=== PATIENT | male | born 1990 | race Caucasian/White ===

== ENCOUNTER 2019-03-12 20:44 | Emergency (ER) | payer OTHER ==
[~2019-03-12] VITALS: Ht 188 cm; Wt 99.8 kg
--- NOTE | 2019-03-12 21:03 | NUR ---
ED Nurse Note: pt walked in to ED C/O right sided flank pain that radiates to the back. reynaldo pain started on last sunday. pt states he took advil and it helps a little. Pt is alert x4. VSS
[2019-03-12 21:06] VITALS: BP 126/75
--- NOTE | 2019-03-12 21:14 | Emergency Room Report ---
History of Present Illness General Chief Complaint: Pain Source: Patient Present Illness HPI Disclaimer: Please note that this report is being documented using [employer] technology. This can lead to erroneous entry secondary to incorrect interpretation by the dictating instrument. HPI: 29-year-old otherwise healthy male presents for evaluation of right side pain. Symptoms began approximately 5 days ago. He states he woke up with a aching pain in his left side that does not radiate. Located over the "kidney" on the right side. He denies any trauma, heavy lifting, strenuous workouts. He is otherwise in his usual state of health and denies any fever, chills, chest pain, shortness of breath, dysuria, hematuria, abdominal pain, vomiting, diarrhea. No prior history of similar pain. There is no family history of abdominal cancers or other significant pathology. No personal or family history of kidney stones. He was seen at urgent care 2 days ago and states a urinalysis was unremarkable. He has not taken any medication for pain and states it is more of an ache. He was referred to the emergency department by his PMD as the pain had persisted for 5 days PMH: None PSH: None reported Allergies: Oxacillin Social Hx: Denies drug or alcohol abuse Allergies: Coded Allergies: AMOXICILLIN (Verified Allergy, Unknown, 03/12/19) Nursing Documentation-PMH Past Medical History: No Stated History Review of Systems All Other Systems: negative except mentioned in HPI Physical Exam Vital Signs Date Time Temp Pulse Resp B/P (MAP) Pulse Ox O2 Delivery O2 Flow Rate FiO2 03/12/19 20:55 97.9 60 16 122/75 (91) 99 Room Air General: Awake and alert, no acute distress HEENT: NC/AT. EOMI. Cardiovascular: RRR. S1 and S2 normal. No murmur appreciated Resp: Normal work of breathing. No cough, wheezing or crackles appreciated Abdomen: Abdomen is soft, nondistended. Nontender. No masses. No rebound Skin: Intact. No abrasions, laceration or rash over the exposed skin MSK: Normal tone and bulk. Moving all extremities. No obvious deformity. Neuro: Awake and alert. Mentating appropriately. Back/Spine: No midline tenderness in the cervical, thoracic or lumbosacral spine. Mild tenderness palpation in the mid scapular line on the right side without deformity or mass palpable. There is no CVA tenderness on percussion. Left side is nontender. Procedures Ultrasound Ultrasound : Consent: Verbal Ultrasound: normal Patient Tolerated: Well Complications: None Progress Ultrasound of the right kidney and liver. No masses appreciated. No pericholecystic fluid, no fluid in Morison's pouch. No evidence of cysts, mass , no hydronephrosis. Normal-appearing kidney. Overall unremarkable exam. Patient tolerated procedure well. No complications. Medical Decision Making Diagnostic Impression: Primary Impression: Right flank pain ER Course Well-appearing 29-year-old male presenting for evaluation of 5 days of right- sided pain that is nonradiating and atraumatic. Differential includes but is not limited to nephrolithiasis, renal colic, biliary colic, cholecystitis, pancreatitis, appendicitis, gastroenteritis, urinary tract infection, pyelonephritis. We will recheck a urinalysis but will also obtain blood work to evaluate for white count and kidney function. Overall he is very well- appearing and this may be a musculoskeletal injury. Do not believe he requires emergent imaging at this time but can reevaluate after lab results and patient improvement after Toradol and fluids. Laboratory Tests Test 03/12/19 21:15 White Blood Count 8.1 K/UL (4.8-10.8) Red Blood Count 5.40 M/UL (4.70-6.10) Hemoglobin 16.4 G/DL (14.2-18.0) Hematocrit 47.5 % (42.0-52.0) Mean Corpuscular Volume 88 FL (80-99) Mean Corpuscular Hemoglobin 30.4 PG (27.0-31.0) Mean Corpuscular Hemoglobin Concent 34.5 G/DL (32.0-36.0) Red Cell Distribution Width 9.8 % (11.6-14.8) L Platelet Count 169 K/UL (150-450) Mean Platelet Volume 8.2 FL (6.5-10.1) Neutrophils (%) (Auto) 52.3 % (45.0-75.0) Lymphocytes (%) (Auto) 35.0 % (20.0-45.0) Monocytes (%) (Auto) 7.9 % (1.0-10.0) Eosinophils (%) (Auto) 3.7 % (0.0-3.0) H Basophils (%) (Auto) 1.1 % (0.0-2.0) Urine Color Pale yellow Urine Appearance Clear Urine pH 5 (4.5-8.0) Urine Specific [place] 1.025 (1.005-1.035) Urine Protein Negative (NEGATIVE) Urine Glucose (UA) Negative (NEGATIVE) Urine Ketones Negative (NEGATIVE) Urine Blood Negative (NEGATIVE) Urine Nitrite Negative (NEGATIVE) Urine Bilirubin Negative (NEGATIVE) Urine Urobilinogen Normal MG/DL (0.0-1.0) Urine Leukocyte Esterase Negative (NEGATIVE) Sodium Level 142 MMOL/L (136-145) Potassium Level 4.3 MMOL/L (3.5-5.1) Chloride Level 103 MMOL/L (98-107) Carbon Dioxide Level 32 MMOL/L (21-32) Anion Gap 7 mmol/L (5-15) Blood Urea Nitrogen 23 mg/dL (7-18) H Creatinine 1.1 MG/DL (0.55-1.30) Estimate Glomerular Filtration Rate > 60 mL/min (>60) Glucose Level 94 MG/DL (74-106) Calcium Level 9.9 MG/DL (8.5-10.1) Total Bilirubin 0.5 MG/DL (0.2-1.0) Aspartate Amino Transferase (AST) 17 U/L (15-37) Alanine Aminotransferase (ALT) 28 U/L (12-78) Alkaline Phosphatase 62 U/L (46-116) Total Protein 8.4 G/DL (6.4-8.2) H Albumin 4.8 G/DL (3.4-5.0) Globulin 3.6 g/dL Albumin/Globulin Ratio 1.3 (1.0-2.7) Lipase 103 U/L (73-393) Reevaluation Time: 21:48 Last Vital Signs Date Time Temp Pulse Resp B/P (MAP) Pulse Ox O2 Delivery O2 Flow Rate FiO2 03/12/19 21:06 98.0 88 17 126/75 99 Room Air Reevaluation Impression Labs have returned within normal limits. No evidence of kidney injury, white count, urinary tract infection. There is no hematuria or other abnormalities noted on urinalysis. The patient had a bedside ultrasound performed by mo showing no evidence of obvious cyst, mass, hydronephrosis or other abnormalities. This may be a musculoskeletal injury and the patient be treated with ibuprofen, Tylenol and lidocaine patches. We discussed stretching and warm baths as well as need to follow-up with his PMD for reevaluation and possibly further testing such as a formal ultrasound, CT scan or MRI. I explained to him that the bedside ultrasound performed is not comprehensive and that his doctor may request a formal ultrasound to more fully investigate his right flank pain. He is overall well-appearing and I do not believe he requires emergent imaging at this time. He will be discharged home to follow- up with PMD. Given strict return precautions. He understands and agrees with this treatment plan was discharged. Disposition: HOME, SELF-CARE Condition: Stable Scripts Lidocaine Patch* (Lidoderm Patch*) 1 Each Adh..patch 1 PATCH TOPIC DAILY, #7 PATCH 0 Refills Patch(es) may remain in place for up to 12 hours in any 24-hour period. Prov: Donal Esqueda MD 03/12/19 Ibuprofen* (MOTRIN*) 600 Mg Tablet 600 MG ORAL Q8H PRN for For Pain, #30 TAB 0 Refills Prov: Donal Esqueda MD 03/12/19 Acetaminophen* (ACETAMINOPHEN 325MG TABLET*) 325 Mg Tablet 650 MG ORAL Q6H PRN for For Pain for 5 Days, #3 TAB Prov: Donal Esqueda MD 03/12/19 Donal Esqueda MD Mar 12, 2019 21:14
[2019-03-12] MEDS ORDERED: Ketorolac 30mg Inj IV ONE (21:15)
--- NOTE | 2019-03-12 21:18 | NUR ---
ED Nurse Note: urine and blood sample sent down to lab
[2019-03-12 21:27] LABS: APPEARANCE,URINE CLEAR; BILIRUBIN, URINE NEGATIVE (NEGATIVE); COLOR,URINE PALE YELLOW; GLUCOSE, URINE (UA) NEGATIVE (NEGATIVE); KETONES,URINE NEGATIVE (NEGATIVE); LEUKOCYTE ESTERASE ,URINE NEGATIVE (NEGATIVE); NITRITE,URINE NEGATIVE (NEGATIVE); PH,URINE 5 (4.5-8.0); PROTEIN,URINE NEGATIVE (NEGATIVE); UROBILINOGEN,URINE NORMAL MG/DL (0.0-1.0)
[2019-03-12 21:33] LABS: BASOPHILS % (AUTO) 1.1 % (0.0-2.0); EOSINOPHILS % (AUTO) 3.7 % (0.0-3.0); HEMATOCRIT 47.5 % (42.0-52.0); HEMOGLOBIN 16.4 G/DL (14.2-18.0); MEAN CORPUSCULAR VOLUME 88 FL (80-99); MONOCYTES % (AUTO) 7.9 % (1.0-10.0); NEUTROPHILS % (AUTO) 52.3 % (45.0-75.0); PLATELET COUNT 169 K/UL (150-450); RED CELL DISTRIBUTION WIDTH 9.8 % (11.6-14.8); WHITE BLOOD COUNT 8.1 K/UL (4.8-10.8)
[2019-03-12 21:36] LABS: ANION GAP 7 mmol/L (5-15); BLOOD UREA NITROGEN 23 mg/dL (7-18); CALCIUM 9.9 MG/DL (8.5-10.1); CARBON DIOXIDE 32 MMOL/L (21-32); CHLORIDE 103 MMOL/L (98-107); CREATININE 1.1 MG/DL (0.55-1.30); POTASSIUM 4.3 MMOL/L (3.5-5.1); SODIUM 142 MMOL/L (136-145)
[2019-03-12 21:41] LABS: ALANINE AMINOTRANSFERASE 28 U/L (12-78); ALBUMIN 4.8 G/DL (3.4-5.0); ALBUMIN/GLOBULIN RATIO 1.3 (1.0-2.7); ALKALINE PHOSPHATASE 62 U/L (46-116); ASPARTATE AMINO TRANSFERASE 17 U/L (15-37); BILIRUBIN,TOTAL 0.5 MG/DL (0.2-1.0)
[2019-03-12] MEDS ORDERED: IBUPROFEN600 MG ORAL (21:47)
[2019-03-12] MEDS ORDERED: LIDODERM700 M1 TOPIC (21:47)
[2019-03-12] MEDS ORDERED: ACETAMINOPHEN325 M1 ORAL (21:47)
[2019-03-12 21:51] VITALS: BP 128/79
--- NOTE | 2019-03-12 21:51 | NUR ---
ER DISCHARGE NOTE: Patient is cleared to be discharged per ERMD, pt is aox4, on room air, with stable vital signs. pt was given dc and prescription instructions, pt was able to verbalize understanding, pt id band and iv site removed without complications. pt is able to ambulate with steady gait. pt took all belongings.
== END 2019-03-12 21:51 | disposition home or self-care (01) ==
LOC: EMR 21:15
DX: R10.9 Unspecified abdominal pain (principal); Z88.1 Allergy status to other antibiotic agents
CPT/HCPCS: 36415; 80053; 81003; 83690; 85025; 96374; 99284; J1885